=== PATIENT | female | born 1970 | race Caucasian/White ===

== ENCOUNTER 2020-07-25 10:29 | Outpatient (REF) | payer OTHER, SELFPAY ==
--- NOTE | 2020-07-25 10:35 | MM_ITS ---
EXAMINATION: MM SCREENING DIGITAL BREAST TOMOSYNTHESIS, BILATERAL CLINICAL INFORMATION: Screening. Asymptomatic. The lifetime risk of breast cancer based on the Tyrer-Cuzick Model is 16%. COMPARISON: Mammography: 07/20/2019, 07/01/2018, 11/25/2016, 05/14/2016 TECHNIQUE: Digital breast tomosynthesis is performed in both the craniocaudal and mediolateral oblique views along with computer-aided detection (CAD). Synthesized 2D images are generated from the tomosynthesis. Additional left CC view is provided. FINDINGS: There are scattered areas of fibroglandular density (ACR BI-RADS breast composition Category b). Breast tissue composition borders on predominantly fatty. There is no developing density or interval mass or architectural abnormality. No abnormal calcifications. The axilla and skin contours are unremarkable. MM/MM tomosynthesis screening BI IMPRESSION: No mammographic evidence of malignancy. ASSESSMENT: BI-RADS 1: Negative RECOMMENDATION: Routine annual mammography screening. This patient's information was entered into a reminder system with a target due date for their next mammogram.
== END 2020-07-25 10:30 | disposition home or self-care (01) ==
LOC: HO.MAMMO 10:29
PROVIDERS: PCP Family Medicine Adult Medicine; Visit Provider Obstetrics & Gynecology
DX: Z12.31 Encounter for screening mammogram for malignant neoplasm of breast (principal)
CPT/HCPCS: 77063; 77067

== ENCOUNTER 2021-08-07 08:17 | Outpatient (REF) | payer OTHER, SELFPAY ==
--- NOTE | ~2021-08-07 | MM_ITS ---
EXAMINATION: MM SCREENING DIGITAL BREAST TOMOSYNTHESIS, BILATERAL CLINICAL INFORMATION: Screening. Asymptomatic. The lifetime risk of breast cancer based on the Tyrer-Cuzick Model is 12%. COMPARISON: Mammography: 07/25/2020, 07/20/2019, 07/01/2018 TECHNIQUE: Digital breast tomosynthesis is performed in both the craniocaudal and mediolateral oblique views along with computer-aided detection (CAD). Synthesized 2D images are generated from the tomosynthesis. FINDINGS: There are scattered areas of fibroglandular density (ACR BI-RADS breast composition Category b). There are no significant masses, abnormal calcifications, or other abnormalities. Breast tissue composition borders on predominantly fatty. Background stromal markings are stable. No significant changes. MM/MM tomosynthesis screening BI IMPRESSION: No mammographic evidence of malignancy. ASSESSMENT: BI-RADS 1: Negative RECOMMENDATION: Routine annual mammography screening. This patient's information was entered into a reminder system with a target due date for their next mammogram.
--- NOTE | ~2021-08-07 | MM_ITS ---
EXAMINATION: BONE DENSITOMETRY CLINICAL INDICATION: Osteoporosis. COMPARISON: This is the patient's baseline examination. TECHNIQUE: Using a [employer] DXA System (software version: 13.1) manufactured by [employer], dual-energy x-ray absorptiometry was performed of the lumbar spine and left hip. The images are of good technical quality. Summary results are attached. FINDINGS: AP SPINE L1-L2 (excluding L3 and L4): The data of L1-L4 has been changed to exclude the L3 and L4 vertebral bodies, because increased sclerosis at these levels may cause overestimation of lumbar spine density. BMD 1.143 g/cm2, Z-score -0.7, T-score -0.2, normal. LEFT FEMUR, NECK: BMD 0.804 g/cm2, Z-score -1.5, T-score -1.7, osteopenia. LEFT FEMUR, TOTAL: BMD 0.858 g/cm2, Z-score -1.4, T-score -1.2, osteopenia. IDENTIFIED RISK FACTORS: Rheumatoid arthritis. HISTORY OF FRACTURE: None listed. MEDICATIONS: Vitamin D. MM/XR DEXA axial skeleton IMPRESSION: 1. DIAGNOSIS: Osteopenia based on the lowest T-score value of -1.7 in the femoral neck applying World Health Organization criteria. 2. 10-YEAR FRACTURE RISK PREDICTION, FRAX: Major osteoporotic fracture (clinical spine, forearm, hip or shoulder) 7.0%. Hip fracture 0.7%. 3. Treatment Recommendations: NOF guidelines recommend consideration for treatment in postmenopausal women and men age 50 and older presenting with the following: -A hip or vertebral (clinical or morphometric) fracture. -T-score less than or equal to -2.5 at the femoral neck or spine after appropriate evaluation to exclude secondary causes. -Low bone mass at the hip or spine and a 10-year fracture probability by FRAX of greater than or equal to 3% for hip fracture or greater than or equal to 20% for major osteoporotic fracture based on the [place] adapted WHO algorithm. 4. Other Recommendations: All treatment decisions require clinical judgment and consideration of individual patient factors, including patient preferences, comorbidities, previous drug use, risk factors not captured in the FRAX model (e.g. frailty, falls, vitamin D deficiency, increased bone turnover, interval significant decline in bone density) and possible under or overestimation of fracture risk by FRAX. Additional medical evaluation for secondary cause of low bone mineral density may be appropriate. FUTURE SCAN RECOMMENDATION: People with diagnosed cases of osteoporosis or at high risk for fracture should have regular bone mineral density tests. For patients eligible for Medicare, routine testing is allowed once every 2 years. The testing frequency can be increased to one year for patients who have rapidly progressing disease, those who are receiving or discontinuing medical therapy to restore bone mass, or have additional risk factors.
== END 2021-08-07 08:18 | disposition home or self-care (01) ==
LOC: HO.MAMMO 08:17
PROVIDERS: PCP Nurse Practitioner Family; Visit Provider Nurse Practitioner Family
DX: Z12.31 Encounter for screening mammogram for malignant neoplasm of breast (principal); Z13.820 Encounter for screening for osteoporosis; M06.9 Rheumatoid arthritis, unspecified; Z79.899 Other long term (current) drug therapy
CPT/HCPCS: 77063; 77067; 77080

== ENCOUNTER 2022-08-13 09:01 | Outpatient (REF) | payer OTHER, SELFPAY ==
--- NOTE | ~2022-08-13 | MM_ITS ---
EXAMINATION: MM SCREENING DIGITAL BREAST TOMOSYNTHESIS, BILATERAL CLINICAL INFORMATION: Screening. Asymptomatic. The lifetime risk of breast cancer based on the Tyrer-Cuzick Model is 11%. COMPARISON: Mammography: 08/07/2021, 07/25/2020, 07/20/2019 TECHNIQUE: Digital breast tomosynthesis is performed in both the craniocaudal and mediolateral oblique views along with computer-aided detection (CAD). Synthesized 2D images are generated from the tomosynthesis. FINDINGS: There are scattered areas of fibroglandular density (ACR BI-RADS breast composition Category b). Breast tissue composition borders on predominantly fatty. There is no developing density or architectural abnormality. Punctate grouped calcifications posterior lower right breast are stable and consistent with dermal calcification on tomography. There are no significant masses, abnormal calcifications, or other abnormalities. The axilla are unremarkable. MM/MM tomosynthesis screening BI IMPRESSION: No mammographic evidence of malignancy. ASSESSMENT: BI-RADS 2: Benign RECOMMENDATION: Routine annual mammography screening. This patient's information was entered into a reminder system with a target due date for their next mammogram.
== END 2022-08-13 09:02 | disposition home or self-care (01) ==
LOC: HO.MAMMO 09:01
PROVIDERS: Visit Provider Nurse Practitioner Family
DX: Z12.31 Encounter for screening mammogram for malignant neoplasm of breast (principal)
CPT/HCPCS: 77063; 77067

== ENCOUNTER 2023-09-16 12:23 | Outpatient (REF) | payer OTHER, SELFPAY ==
--- NOTE | ~2023-09-16 | MM_ITS ---
EXAMINATION: MM SCREENING DIGITAL BREAST TOMOSYNTHESIS, BILATERAL CLINICAL INFORMATION: Screening. Asymptomatic. The patient has a history of a benign left excisional biopsy from the remote past. COMPARISON: Mammography: This study is compared with prior exams dating back to 2019. TECHNIQUE: Digital breast tomosynthesis is performed in both the craniocaudal and mediolateral oblique views along with computer-aided detection (CAD). Synthesized 2D images are generated from the tomosynthesis. FINDINGS: The breasts are almost entirely fatty (ACR BI-RADS breast composition Category a). There are no significant masses, abnormal calcifications, or other abnormalities. MM/MM tomosynthesis screening BI IMPRESSION: No mammographic evidence of malignancy. ASSESSMENT: BI-RADS BI-RADS 1 - Negative RECOMMENDATION: Routine annual mammography screening. 1 year F/U This examination should not preclude the clinical evaluation of a suspicious palpable abnormality. This patient's information was entered into a reminder system with a target due date for their next mammogram.
== END 2023-09-16 12:24 | disposition home or self-care (01) ==
LOC: HO.MAMMO 12:23
PROVIDERS: PCP Internal Medicine; Visit Provider Nurse Practitioner Family
DX: Z12.31 Encounter for screening mammogram for malignant neoplasm of breast (principal)
CPT/HCPCS: 77063; 77067

== ENCOUNTER → 2023-09-16 12:30 | Outpatient (BNV) | payer OTHER, SELFPAY | PROVIDERS: PCP Internal Medicine; Visit Provider Radiology Diagnostic Radiology | DX: Z12.31 Encounter for screening mammogram for malignant neoplasm of breast (principal) | CPT/HCPCS: 77063; 77067 ==

== ENCOUNTER 2024-09-21 10:50 | Outpatient (REF) | payer OTHER, SELFPAY ==
--- OUTSIDE RECORDS SUMMARY | 2024-09-21 12:32 | XMS_ITS | Clinical Summary ---
Author Organization [address] [facility] Address [address] [place] [address] Phone Care Team Providers Care Scale Reclamation Tender Name Role Phone Physician, Pcp Unknown Primary Care Provider Ashley vailable Encounters Date Type Department Care Team Description 08/17/[address] [facility] - Main Lab [address] [facility] [place] [address] Fahad Gonzalez MD Malignant neoplasm of lateral wall of bladder (CMS/HCC) from Last 3 Months Social History Tobacco Use Types Packs/Day Years Used Date Smoking Tobacco: Never Assessed Comments Unknown Sex and Gender Information Value Date Recorded Sex Assigned at Not on file Legal Sex Female 1:22 PM EST Gender Identity Not on file Sexual Orientation Not on file Plan of Treatment Health Maintenance Due Date Last Done Comments Breast Cancer Screening 1968 COVID-19 Vaccine (#1) 1973 DTaP,Tdap,and Td Vaccines (1 - Tdap) 1987 Hepatitis B Vaccines (1 of 3 - 19+ 3-dose series) 1987 Pneumococcal Vaccine: 50+ Ye ars (1 of 2 - PCV) 1987 Pneumococcal Vaccine: Pediat rics (0 to 5 Years) and At-Risk Patients (6 to 64 Years) (1 of 2 - PCV) 1987 Zoster Vaccines (1 of 2) 1987 Cervical Cancer Screening: P ap Smear 1989 Influenza Vaccine (#1) 2024 Colorectal Cancer Screening: Colonoscopy 08/17/2024 Depression Screening 08/17/2024 HIV Screening 08/17/2024 Hepatitis C Screening 08/17/2024 Social Influencers of Health Screening 08/17/2024 HIB Vaccines Aged Out No longer eligi ble based on patient's age to complete this topic HPV Vaccines Aged Out No longer eligi ble based on patient's age to complete this topic Hepatitis A Vaccines Aged Out No long er eligible based on patient's age to complete this topic IPV Vaccines Aged Out No longer eligi ble based on patient's age to complete this topic MMR Vaccines Aged Out No longer eligi ble based on patient's age to complete this topic Meningococcal ACWY Vaccine Aged Out N o longer eligible based on patient's age to complete this topic Meningococcal B Vacine Aged Out No lo nger eligible based on patient's age to complete this topic RSV Immunization Patients Un alis 20 months Aged Out No longer eligible b ased on patient's age to complete this topic Varicella Vaccines Aged Out No longer eligible based on patient's age to complete this topic Procedures Procedure Name Priority Date/Time Associated Diagnosis Comments AP OUTSIDE CONSULT Routine 08/10/2024 12 :00 AM EST Malignant neoplasm of lateral wall of bladder (CMS/HCC) from Last 3 Months Results * Anatomic pathology outside consult (08/10/2024 12:00 AM EST) Final Diagnosis A. Urine, Voided, ([id number]): Negative for high grade urothelial carcinoma. Results of UroVysion fluorescence in situ hybridization (FISH) testing: CEP3: Normal CEP7: Normal CEP17: Normal LSI 9p21: Normal Interpretation: Normal profile Controls stained appropriately. Note: The results are intended as a screening device and should be interpreted in association with other clinical and pathological findings. 08/25/2024 3:59 PM [facility] Clinical Information Malignant neoplasm of lateral wall of bladder C67.2 Urine Cytology/FISH (now) 08/25/2024 3:59 PM [facility] Gross Description A. Urine, Voided, ([id number]): Received one ThinPrep slide for cytology and one ThinPrep slide for UroVysion FISH 08/25/2024 3:59 PM [facility] Disclaimer Unless otherwise specified, all tissue is 10% NB formalin fixed and paraffin embedded. Technical pathology services provided by [facility] at [address] [place] [address] [address], [place] [address] (CLIA #[id number]/Daniella Oviedo MD, Regional Hr Manager) 08/25/2024 3:59 PM EST [facility] Tissue Urine specimen from urethra / Unknown 08/10/2024 08/17/2024 1:30 PM EST us Fahad Gonzalez MD LAB PATHOLOGY ORDERAB LES Final Result [facility] ([facility]) [facility] [address] [place] [address], from Last 3 Months Insurance [facility] Care Teams Scale Reclamation Tender Relationship Specialty Start Date End Date Physician, Pcp Unknown PCP - General 08/17/24
--- OUTSIDE RECORDS SUMMARY | 2024-09-21 12:32 | XMS_ITS | Patient Health Record ---
Author Organization [facility] Address [address] [place] [phone] Support Name Relationship Address Phone STEFANIA Greene Guarantor Unknown Unavaila ble REASON FOR REFERRAL No Information PLAN OF TREATMENT No Information Insurance Providers Payer Name Payer Address Payer Phone Subscriber Number Group Number Insured Name Patient Relationship to Insured Coverage Start Date Coverage End Date HNE MEDICARE [facility] [address] [facility] [place] [phone] [id number] STEFANIA Greene Self - patient is the insured 1
--- OUTSIDE RECORDS SUMMARY | 2024-09-21 12:32 | XMS_ITS | Encounter Summary ---
Author Organization [facility] Address [address] [place] [address] Care Team Providers Care Accounting File Clerk Name Role Phone Physician, Pcp Unknown Primary Care Provider Ashley vailable Encounter Details Date Type Department Care Team (Late st Contact Info) Description 08/17/2024 Lab Requisition [facility] - Main Lab [address] [facility] [place] [address] Fahad Gonzalez MD [address] [facility] [address] [place] [address] Malignant neoplasm of lateral wall of bladder (CMS/HCC) Social History Tobacco Use Types Packs/Day Years Used Date Smoking Tobacco: Never Assessed Comments Unknown Sex and Gender Information Value Date Recorded Sex Assigned at Not on file Legal Sex Female 1:22 PM EST Gender Identity Not on file Sexual Orientation Not on file documented as of this encounter Plan of Treatment Not on file documented as of this encounter Procedures Procedure Name Priority Date/Time Associated Diagnosis Comments AP OUTSIDE CONSULT Routine 08/10/2024 12 :00 AM EST Malignant neoplasm of lateral wall of bladder (CMS/HCC) documented in this encounter Results * Anatomic pathology outside consult (08/10/2024 12:00 AM EST) Final Diagnosis A. Urine, Voided, ([id number]): Negative for high grade urothelial carcinoma. Results of UroVysion fluorescence in situ hybridization (FISH) testing: CEP3: Normal CEP7: Normal CEP17: Normal LSI 9p21: Normal Interpretation: Normal profile Controls stained appropriately. Note: The results are intended as a screening device and should be interpreted in association with other clinical and pathological findings. 08/25/2024 3:59 PM EST [facility] Clinical Information Malignant neoplasm of lateral wall of bladder C67.2 Urine Cytology/FISH (now) 08/25/2024 3:59 PM EST [facility] Gross Description A. Urine, Voided, ([id number]): Received one ThinPrep slide for cytology and one ThinPrep slide for UroVysion FISH 08/25/2024 3:[address] [facility] Disclaimer Unless otherwise specified, all tissue is 10% NB formalin fixed and paraffin embedded. Technical pathology services provided by [facility] at [address] [facility] [address], [place] [address] (CLIA #[id number]/Daniella Oviedo MD, Supervisor Abattoir) 08/25/2024 3:[address] [facility] Tissue Urine specimen from urethra / Unknown 08/10/2024 08/17/2024 1:30 PM EST us Fahad Gonzalez MD LAB PATHOLOGY ORDERAB LES Final Result [facility] [address] [place] [address], documented in this encounter Visit Diagnoses Diagnosis Malignant neoplasm of lateral wall of bladder (CMS/HCC) Malignant neoplasm of lateral wall of urinary bladder documented in this encounter Care Teams Accounting File Clerk Relationship Specialty Start Date End Date Physician, Pcp Unknown PCP - General 08/17/24 documented as of this encounter
== END 2024-09-21 10:51 | disposition home or self-care (01) ==
LOC: HO.MAMMO 10:50
PROVIDERS: PCP Internal Medicine; Visit Provider Internal Medicine
DX: Z12.31 Encounter for screening mammogram for malignant neoplasm of breast (principal)
CPT/HCPCS: 77063; 77067

== ENCOUNTER → 2024-09-21 11:00 | Outpatient (BNV) | payer OTHER, SELFPAY | PROVIDERS: PCP Internal Medicine; Visit Provider Internal Medicine | DX: Z12.31 Encounter for screening mammogram for malignant neoplasm of breast (principal) | CPT/HCPCS: 77063; 77067 ==